=== PATIENT | male | born 1990 | race Caucasian/White ===

== ENCOUNTER 2018-10-21 14:45 | Emergency (ER) | payer BC ==
[~2018-10-21] VITALS: Ht 172.7 cm; Wt 135.2 kg
[2018-10-21 14:49] VITALS: BP 141/90; Ht 172.7 cm; Wt 135.2 kg
== END 2018-10-21 15:38 | disposition home or self-care (01) ==
LOC: ED 14:45
DX: H60.501 Unspecified acute noninfective otitis externa, right ear (principal)